=== PATIENT | female | born 1990 | race African-American/Black ===

== ENCOUNTER 2018-08-30 12:44 | Emergency (ER) | payer OTHER ==
[~2018-08-30 12:44] MED LIST: ACYCLOVIR800 MG PO; ADDERALL 10 MG10 MG PO; ANTIVERT/2525 MG PO; ATIVAN0.5 MG PO; ATIVAN1 MG PO; BACTRIM 400 MG-1 TAB PO; BACTRIM DS 8001 TA1 PO; BIRTH CONTROL1 EACH PO; CIPRO250 MG PO; CIPRO500 MG PO; CLARITIN10 MG PO; CYCLOBENZAPRINE10 MG PO; DEPO PROVER150 MG/M1 IM; DIFLUCAN150 MG PO; DOXYCYCLINE MO100 MG PO; EC NAPROSYN500 MG PO; EES400 MG PO; ELAVIL25 MG PO; FLEXERIL10 MG PO; GABAPENTIN300 MG PO; IBU800 MG PO; KEFLEX500 MG PO; MACROBID100 M1 PO; MIRALAX POWDER17 G1 PO; MONISTAT 72% VG; MOTRIN600 MG PO; MOTRIN800 MG PO; NAPROSYN500 MG PO; NKHM; ORAXYL20 MG PO; PREDNISONE50 MG PO; PYRIDIUM200 MG PO; TOBREX 5 ML5 ML OP; TYLENOL650 M1 PO; ULTRAM50 MG PO; VIBRAMYCIN100 MG PO; VICODIN 5/500 505 MG PO; ZITHROMAX Z PA250 MG PO; ZITHROMAX250 MG PO
[2018-08-30] MEDS ORDERED: MIRALAX119 GM PO (14:42)
== END 2018-08-30 15:59 | disposition home or self-care (01) ==
LOC: ED 12:44
DX: K59.00 Constipation, unspecified (principal); Z91.018 Allergy to other foods; Z88.0 Allergy status to penicillin; Z88.2 Allergy status to sulfonamides; Z79.899 Other long term (current) drug therapy

== ENCOUNTER 2018-11-12 08:53 | Emergency (ER) | payer OTHER ==
[~2018-11-12] VITALS: Wt 99.8 kg
[~2018-11-12 08:53] MED LIST changes: +MIRALAX119 GM PO
[2018-11-12] MEDS ORDERED: ZOFRAN4 MG PO (09:24)
[2018-11-12] MEDS ORDERED: CEPHALEXIN500 M1 PO (09:24)
[2018-11-12] MEDS ORDERED: IBU800 MG PO (09:24)
[2018-11-12] MEDS ORDERED: CLINDAMYCIN HC300 MG PO (09:24)
== END 2018-11-12 09:30 | disposition home or self-care (01) ==
LOC: ED 08:53
DX: K03.81 Cracked tooth (principal); K65.8 Other peritonitis; R11.0 Nausea; F17.200 Nicotine dependence, unspecified, uncomplicated; Z79.899 Other long term (current) drug therapy; Z88.0 Allergy status to penicillin; Z88.1 Allergy status to other antibiotic agents; Z88.8 Allergy status to other drugs, medicaments and biological substances

== ENCOUNTER 2020-01-29 07:24 | Emergency (ER) | payer OTHER ==
[~2020-01-29] VITALS: Ht 165.1 cm; Wt 81.6 kg
[~2020-01-29 07:24] MED LIST changes: +CEPHALEXIN500 M1 PO; +CLINDAMYCIN HC300 MG PO; +ZOFRAN4 MG PO
[2020-01-29] MEDS ORDERED: ZOFRAN4 MG PO (08:22)
[2020-01-29] MEDS ORDERED: TYLENOL325 M1 PO (08:22)
[2020-01-29] MEDS ORDERED: CLINDAMYCIN150 MG PO (08:22)
[2020-01-29] MEDS ORDERED: Motrin,Rufen800 MG PO (08:22)
== END 2020-01-29 08:33 | disposition home or self-care (01) ==
LOC: ED 07:24
DX: K08.89 Other specified disorders of teeth and supporting structures (principal); F17.200 Nicotine dependence, unspecified, uncomplicated; Z88.0 Allergy status to penicillin; Z88.2 Allergy status to sulfonamides; Z91.018 Allergy to other foods; Z79.899 Other long term (current) drug therapy

== ENCOUNTER 2020-02-02 08:46 | Emergency (ER) | payer OTHER ==
[~2020-02-02] VITALS: Ht 165.1 cm; Wt 84.8 kg
[~2020-02-02 08:46] MED LIST changes: +CLINDAMYCIN150 MG PO; +Motrin,Rufen800 MG PO; +TYLENOL325 M1 PO
[2020-02-02 10:09] LABS: BASO % 0.6 % (0.0-1.0); EOS # 0.1 10*3/uL (0.0-0.4); HEMATOCRIT 37.9 % (37.0-47.0); LYMPH # 1.1 10*3/uL (1.3-4.4); LYMPH % 17.3 % (27.0-41.0); MEAN CELL VOLUME 97.2 fl (81.0-99.0); MEAN CORPUSCULAR HGB 32.8 pg (27.0-31.0); MEAN CORPUSCULAR HGB CONC 33.8 g/dl (33.0-37.0); MONO # 0.5 10*3/uL (0.1-1.0); MONO % 7.9 % (3.0-9.0); NEUT # 4.5 10*3/uL (2.3-7.9); NEUT % 72.7 % (47.0-73.0); PLATELET COUNT AUTOMATED 217 10*3/uL (130-400); RED CELL DISTRI WIDTH 13.1 % (0-14.5); WHITE BLOOD COUNT 6.2 10*3/uL (4.8-10.8)
[2020-02-02 10:24] LABS: ALBUMIN 3.5 gm/dl (3.1-4.5); ALKALINE PHOSPHATASE 72 U/L (45-117); BUN 3 mg/dl (7-24); CHLORIDE 112 mmol/L (98-107); CREATININE 0.64 mg/dL (0.55-1.02); LIPASE 54 U/L (73-393); SGOT/AST 7 IU/L (3-35); SGPT/ALT 12 U/L (12-78); SODIUM 140 mmol/L (136-145); TOTAL PROTEIN 7.4 gm/dL (6.4-8.2)
[2020-02-02] MEDS ORDERED: AMINOPHYLLIN200 MG PO (10:51)
[2020-02-02] MEDS ORDERED: FLAGYL500 MG PO (10:51)
[2020-02-02] MEDS ORDERED: LOMOTIL 2.5-0.1 EACH PO (10:52)
== END 2020-02-02 10:57 | disposition home or self-care (01) ==
LOC: ED 08:46
PROVIDERS: Physician Assistant
DX: R19.7 Diarrhea, unspecified (principal); F32.9 Major depressive disorder, single episode, unspecified; F41.9 Anxiety disorder, unspecified; Z79.899 Other long term (current) drug therapy

== ENCOUNTER 2020-06-24 10:55 | Emergency (ER) | payer OTHER ==
[~2020-06-24 10:55] MED LIST changes: +AMINOPHYLLIN200 MG PO; +FLAGYL500 MG PO; +LOMOTIL 2.5-0.1 EACH PO
[2020-06-24 11:45] LABS: BILIRUBIN Negative (Negative); BLOOD Negative (Negative); CLARITY Clear (Clear); COLOR Yellow (Yellow); GLUCOSE Negative (Negative); KETONE Negative (Negative); LEUKO ESTERASE Trace (Negative); NITRITE Negative (Negative); PH 5.5 (4.5-8.0); SPECIFIC GRAVITY 1.015 (1.001-1.030); UROBILINOGEN 0.2 E.U./dl (0.0-1.0)
[2020-06-24 12:01] LABS: BACTERIA 3+
== END 2020-06-24 12:50 | disposition home or self-care (01) ==
LOC: ED 10:55
PROVIDERS: Nurse Practitioner Family
DX: N89.8 Other specified noninflammatory disorders of vagina (principal); Z20.2 Contact with and (suspected) exposure to infections with a predominantly sexual mode of transmission; F41.9 Anxiety disorder, unspecified; F32.9 Major depressive disorder, single episode, unspecified; F90.9 Attention-deficit hyperactivity disorder, unspecified type; F17.200 Nicotine dependence, unspecified, uncomplicated; Z91.018 Allergy to other foods; Z88.0 Allergy status to penicillin; Z88.2 Allergy status to sulfonamides; Z79.2 Long term (current) use of antibiotics; Z79.899 Other long term (current) drug therapy

== ENCOUNTER 2020-10-02 11:45 | Emergency (ER) | payer OTHER ==
[~2020-10-02] VITALS: Wt 97.1 kg
== END 2020-10-02 14:05 | disposition home or self-care (01) ==
LOC: ED 11:45
DX: R51.9 Headache, unspecified (principal); H53.149 Visual discomfort, unspecified; R11.0 Nausea; Z91.018 Allergy to other foods; Z88.0 Allergy status to penicillin; Z88.2 Allergy status to sulfonamides; Z79.2 Long term (current) use of antibiotics; Z79.899 Other long term (current) drug therapy; Z53.29 Procedure and treatment not carried out because of patient's decision for other reasons

== ENCOUNTER → 2020-11-20 | Outpatient (CLI) | payer OTHER | END | disposition home or self-care (01) | LOC: CARD 10:44 | PROVIDERS: ATTEND Nurse Practitioner | DX: F90.2 Attention-deficit hyperactivity disorder, combined type (principal) ==

== ENCOUNTER 2021-01-19 16:38 | Emergency (ER) | payer OTHER ==
[~2021-01-19] VITALS: Wt 98.0 kg
[2021-01-19] MEDS ORDERED: ZOFRAN4 MG PO (17:01)
== END 2021-01-19 17:15 | disposition home or self-care (01) ==
LOC: ED 16:38
DX: R11.0 Nausea (principal); R10.9 Unspecified abdominal pain; Z88.0 Allergy status to penicillin; Z88.2 Allergy status to sulfonamides; Z79.2 Long term (current) use of antibiotics; Z79.899 Other long term (current) drug therapy